=== PATIENT | female | born 1995 | race Caucasian/White ===

== ENCOUNTER 2017-12-23 14:44 | Inpatient (IN) | payer OTHER ==
--- NOTE | 2017-12-23 15:37 | PDOC ---
Attending Attestation - Resident Resident Name: Nyasia Rowley - ED Attending Attestation I have performed the following: I have examined & evaluated the patient, The case was reviewed & discussed with the resident, I agree w/resident's findings & plan, Exceptions are as noted - HPI HPI: 12/23/17 16:05 Ms Austin is a 22 yo F who presents to the ER with a complaint of abdominal pain She is s/p on 12/03/17 She has had intermittent epigastric pain, radiating to the back Pain this morning was 10/10 and became constant. Worsens with food, associated with nausea and decreased po intake No fevers or chills No diarrhea. Pt is actually constipated Denies dysuria, hematuria, vaginal discharge, or new vaginal bleeding - Physicial Exam PE: 12/23/17 16:13 GENERAL: The patient is in no acute distress. LUNGS: Breath sounds equal, clear to auscultation bilaterally. No wheezes, and no crackles. HEART:Regular rate and rhythm, normal S1 and S2 without murmur, rub or gallop. ABDOMEN: Soft, epigastric, RUQ tenderness to palpation EXTREMITIES: Normal range of motion NEUROLOGICAL: Cranial nerves II through XII grossly intact. Normal speech. No focal neurological deficits. SKIN: No rashes or lesions noted. - Medical Decision Making 12/23/17 16:14 22 yo F presenting with epigastric and ruq pain DD includes: gastritis, biliary pathology, ulcer, pancreatits Will do: Labs, US, Tylenol Re assess Pt signed out to Dr Scott pending US and Labs
[2017-12-23] MEDS ORDERED: ONDANSETRON 4 MG/2 ML VIAL IVPUSH ONE (15:40)
[2017-12-23] MEDS ORDERED: ACETAMINOPHEN 1000 MG/100 ML VIAL (NON FORMULARY) IVPB ONE (15:40)
[2017-12-23] MEDS ORDERED: SODIUM CHLORIDE 0.9% 500 ML INFUS.BAG IV ONE ×2 (15:40→17:53)
--- NOTE | 2017-12-23 15:46 | PDOC ---
History of Present Illness - General Chief Complaint: Pain, Acute Stated Complaint: STOMACH PAIN Time Seen by Provider: 12/23/17 15:24 History Source: Patient Exam Limitations: No Limitations - History of Present Illness Initial Comments: 12/23/17 15:41 This is a 22 YOF with h/o obesity and recent with uncomplicated full- term vaginal delivery (12/03/[address] Avilez) who p/w 2 days fluctuating epigastric and RUQ pain radiating straight back to her mid-back. It started out milder 2 days ago and seemed to improve initially, but this morning it increased to 10/10 and is constant, unrelenting. It worsens with any food intake and is associated with nausea, but she denies any f/c, v/d/c, chest pain , SOB (other than 2/2 exacerbated abdominal pain with deep breathing), cough, skin color changes, bloody or black stool, dysuria, hematuria, vaginal discharge , or new vaginal bleeding (has baseline spotting since giving last month) . She took Motrin for the pain at the onset two days ago but nothing for symptoms recently. Past History - Past Medical History Allergies/Adverse Reactions: Allergies Allergy/AdvReac Type Severity Reaction Status Date / Time latex Allergy Mild Hives Verified 12/23/17 14:49 Home Medications: Ambulatory Orders NK [No Known Home Medication] 12/23/17 Asthma: No Cancer: No Cardiac Disorders: No COPD: No Diabetes: No HTN: No Seizures: No Thyroid Disease: No - Suicide/Smoking/Psychosocial Hx Smoking History: Never smoked Have you smoked in the past 12 months: No Information on smoking cessation initiated: No Hx Alcohol Use: No Drug/Substance Use Hx: No Substance Use Type: None Hx Substance Use Treatment: No Review of Systems - Review of Systems Able to Perform ROS?: Yes Constitutional: No: Chills, Fever, Unexplained wgt Loss HEENTM: No: Nose Congestion, Throat Pain Respiratory: No: Cough, Shortness of Breath Cardiac (ROS): No: Chest Pain, Palpitations ABD/GI: Yes: Nausea, Other (upper abdominal pain). No: Constipated, Diarrhea, Vomiting : No: Burning, Dysuria Musculoskeletal: No: Back Pain, Neck Pain Integumentary: No: Bruising, Rash Neurological: No: Headache, Numbness, Tingling, Weakness, Dizziness Endocrine: No: Unexplained Weight Gain, Unexplained Weight Loss *Physical Exam - Vital Signs Last Vital Signs Temp Pulse Resp BP Pulse Ox 98.1 F 81 16 146/83 100 12/23/17 14:46 12/23/17 14:46 12/23/17 14:46 12/23/17 14:46 12/23/17 14:46 - Physical Exam General Appearance: Yes: Nourished, Obese, Other (pleasant adult female in minimal distress at rest but appears a bit uncomfortable, mild distress during abdominal palpation) HEENT: positive: EOMI, Normal Voice, Hearing Grossly Normal. negative: Scleral Icterus (R), Scleral Icterus (L), Nasal Congestion Neck: positive: Trachea midline, Supple. negative: Tender, Rigid Respiratory/Chest: positive: Lungs Clear, Normal Breath Sounds. negative: Respiratory Distress, Crackles, Rhonchi, Stridor, Wheezing Cardiovascular: positive: Regular Rhythm, Regular Rate, S1, S2. negative: Edema , JVD, Murmur Gastrointestinal/Abdominal: positive: Normal Bowel Sounds, Tender (moderate epigastric and RUQ ttp with +Kaur sign), Soft. negative: Organomegaly, Pulsatile Mass, Guarding Musculoskeletal: positive: Normal Inspection. negative: Decreased Range of Motion, Vertebral Tenderness Extremity: positive: Normal Capillary Refill, Normal Inspection, Normal Range of Motion. negative: Tender, Cyanosis Integumentary: positive: Normal Color, Dry, Warm. 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 Initial Vital Signs Temp Pulse Resp BP Pulse Ox 98.1 F 81 16 146/83 100 12/23/17 14:46 12/23/17 14:46 12/23/17 14:46 12/23/17 14:46 12/23/17 14:46 Exam: As noted in Physical Exam section. DDX IBNLT: cholecystitis (calculous vs. acalculous), choledocholithiasis, cholangitis, pancreatitis, gastritis, PUD, appendicitis, colitis, diverticulitis wwo abscess or perforation, AAA/AD, ACS, renal colic, obstructive uropathy, UTI/pyelonephritis, hernia, SBO, mesenteric/bowel ischemia , bowel perforation, malignancy, ovarian torsion, ovarian cyst, ectopic , PID, TOA, cervicitis, endometritis, salpingitis, oophoritis, Omari- Villa-Yann syndrome, primary dysmenorrhea, endometriosis, fibroids, constipation, gas, musculoskeletal, etc. W/U ordered: CBCD CMP Mg Phos Lipase Troponin Coags T&S UA UCx Serum Preg EKG CXR RUQ US TX ordered: IVF [facility] Elisgalen Padillad EKG: Reviewed; results as noted in ECG Review section. CXR: Nothing acute GB US: CBD 0.91 cm, stones and sludge seen in GB neck, GB wall thickening, no pericholecystic fluid Laboratory Tests 12/23/17 12/23/17 12/23/17 16:40 16:40 16:40 WBC 8.3 RBC 4.38 Hgb 12.6 Hct 36.8 D MCV 84.2 MCH 28.9 MCHC 34.3 RDW 14.8 Plt Count 357 D MPV 7.9 Absolute Neuts (auto) 6.4 Neutrophils % 77.2 Lymphocytes % 16.0 Monocytes % 5.3 Eosinophils % 0.8 D Basophils % 0.7 Nucleated RBC % 0 PT with INR 11.50 INR 1.02 Sodium 139 Potassium 4.3 Chloride 104 Carbon Dioxide 24 Anion Gap 11 BUN 9 Creatinine 0.7 Creat Clearance w eGFR > 60 Random Glucose 113 H Calcium 9.0 Phosphorus 3.5 Magnesium 2.0 Total Bilirubin 1.4 H AST 293 H ALT 183 H Alkaline Phosphatase 210 H Troponin I < 0.02 Total Protein 7.9 Albumin 3.6 Lipase 134 Serum , Qual Blood Type Antibody Screen 12/23/17 12/23/17 16:40 16:40 WBC RBC Hgb Hct MCV MCH MCHC RDW Plt Count MPV Absolute Neuts (auto) Neutrophils % Lymphocytes % Monocytes % Eosinophils % Basophils % Nucleated RBC % PT with INR INR Sodium Potassium Chloride Carbon Dioxide Anion Gap BUN Creatinine Creat Clearance w eGFR Random Glucose Calcium Phosphorus Magnesium Total Bilirubin AST ALT Alkaline Phosphatase Troponin I Total Protein Albumin Lipase Serum , Qual Negative Blood Type O POSITIVE Antibody Screen Negative 12/23/17 18:15 Reassessment: Patient remains painful, repeat abdominal exam unchanged. 12/23/17 18:[address] Mcfarland who is on board with admission to Med/Surg. Patient to be kept NPO. ADMIT The Pts symptoms persist despite ED treatments. The Pt is unsafe for discharge at this time. They require further hospital observation, workup, and treatment. Microblog sent to [facility] for admission. Blank Decision to Admit order has been placed. 12/23/17 20:12 Spoke with Vaishali Craig, in agreement patient to go to IP Med/Surg. Decision to Admit order corrected with Dr. Roque's name. *DC/Admit/Observation/Transfer Diagnosis at time of Disposition: Cholecystitis, Choledocholithiasis, Hyperbilirubinemia - Discharge Dispostion Condition at time of disposition: Guarded Decision to Admit order: Yes - Referrals - Patient Instructions - Post Discharge Activity
[2017-12-23] MEDS ORDERED: FAMOTIDINE 20 MG/50 ML IVPB 20 MG/50 ML MG IVPB ONE ×2 (15:48→16:46)
[2017-12-23] MEDS ORDERED: ACETAMINOPHEN INJECTION 100 ML IVPB ONE (16:46)
[2017-12-23] MEDS ORDERED: ONDANSETRON 4 MG/2 ML VIAL ONE (16:46)
[2017-12-23 16:58] LABS: BASO % 0.7 % (0-2.0); EOS % 0.8 % (0-4.5); HEMATOCRIT 36.8 % (32.4-45.2); HEMOGLOBIN 12.6 GM/dL (10.7-15.3); MCH 28.9 pg (25.7-33.7); MCHC 34.3 g/dl (32.0-36.0); MEAN CELL VOLUME 84.2 fl (80-96); MEAN PLT VOLUME 7.9 fl (7.5-11.1); MONO % 5.3 % (3.8-10.2); NEUT % 77.2 % (42.8-82.8); PLATELET COUNT 357 K/MM3 (134-434); RBC 4.38 M/mm3 (3.60-5.2); RDW 14.8 % (11.6-15.6); WHITE BLOOD COUNT 8.3 K/mm3 (4.0-10.0)
[2017-12-23 17:20] LABS: INR 1.02 (0.83-1.09); PROTHROMBIN TIME (PATIENT) 11.5 SEC (9.7-13.0)
[2017-12-23 17:25] LABS: ALBUMIN 3.6 g/dl (3.4-5.0); ANION GAP 11 MMOL/L (8-16); BILIRUBIN,TOTAL 1.4 mg/dL (0.2-1.0); BLOOD UREA NITROGEN 9 mg/dL (7-18); CHLORIDE 104 mmol/L (98-107); CO2 24 mmol/L (21-32); CREATININE 0.7 mg/dL (0.55-1.02); GLUCOSE,RANDOM 113 mg/dL (74-106); LIPASE 134 U/L (73-393); PHOSPHOROUS 3.5 mg/dL (2.5-4.9); POTASSIUM 4.3 mmol/L (3.5-5.1); SGOT/AST 293 U/L (15-37); SGPT/ALT 183 U/L (12-78); SODIUM 139 mmol/L (136-145); TOT PROT 7.9 g/dl (6.4-8.2)
[2017-12-23 17:29] LABS: ALK PHOS 210 U/L (45-117)
[2017-12-23 19:10] LABS: URINE APPEARANCE CLEAR; URINE BILIRUBIN NEGATIVE (<2.0 mg/dL); URINE COLOR STRAW; URINE GLUCOSE (UA) NEGATIVE (NEGATIVE); URINE KETONE NEGATIVE (NEGATIVE); URINE NITRITE NEGATIVE (NEGATIVE); URINE PROTEIN NEGATIVE (NEGATIVE); URINE UROBILINOGEN NEGATIVE mg/dL (0.2-1.0)
[2017-12-23 19:17] LABS: URINE LEUK ESTERASE 1+ (NEGATIVE)
[2017-12-23 19:18] LABS: EPI CELLS FEW /HPF (FEW)
[2017-12-23] MEDS ORDERED: MORPHINE SULFATE 2 MG/ML VIAL IVPUSH PRN (20:15)
--- NOTE | 2017-12-23 20:20 | HP ---
CHIEF COMPLAINT: PCP: Dr. Delacruz HISTORY OF PRESENT ILLNESS: Patient is a 22 yo F with no significant pmhx, presented with 10/10, intermittent epigastric and RUQ abdominal pain that radiates to her back. She says the pain started 2 days ago but couldn't handle the pain this morning. She associates the pain with food intake. She also has associated nausea. No vomiting. She denies fevers, chills, chest pain, diarrhea , blood in stool. She recently gave 12/03. It was uncomplicated vaginal . ER course was notable for: (1) GB US: CBD 0.91 cm, stones and sludge seen in GB neck, GB wall thickening, no pericholecystic fluid (2) Ast 293, ALT 183, Alk phos 210 Social History: Smoking: denies Alcohol: denies Drugs: denies Family History: Allergies latex Allergy (Mild, Verified 12/23/17 14:49) Hives HOME MEDICATIONS: Home Medications Medication Instructions Recorded NK [No Known Home Medication] 12/23/17 REVIEW OF SYSTEMS CONSTITUTIONAL: Absent: fever, chills, diaphoresis, generalized weakness, malaise, loss of appetite, weight change HEENT: Absent: eye pain, visual changes CARDIOVASCULAR: Absent: chest pain, syncope, palpitations, irregular heart rate, lightheadedness , peripheral edema RESPIRATORY: Absent: cough, shortness of breath, dyspnea with exertion, orthopnea, wheezing, stridor, hemoptysis GASTROINTESTINAL: abdominal pain, nausea Absent: abdominal distension,vomiting, diarrhea, constipation, melena, hematochezia GENITOURINARY: Absent: dysuria, frequency, urgency, hesitancy, hematuria, flank pain, genital pain MUSCULOSKELETAL: back pain Absent: myalgia, arthralgia, joint swelling, neck pain SKIN: Absent: rash, itching, pallor NEUROLOGIC: Absent: headache, focal weakness or paresthesias, dizziness, unsteady gait, seizure, mental status changes, bladder or bowel incontinence PSYCHIATRIC: Absent: anxiety, depression, suicidal or homicidal ideation, hallucinations. PHYSICAL EXAMINATION Vital Signs - 24 hr 12/23/17 14:46 Temperature 98.1 F Pulse Rate 81 Respiratory 16 Rate Blood Pressure 146/83 O2 Sat by Pulse 100 Oximetry (%) GENERAL: Awake, alert, and fully oriented, in no acute distress. HEAD: Normal with no signs of trauma. EYES: Pupils equal, round and reactive to light, extraocular movements intact. EARS, NOSE, THROAT: oropharynx clear without exudates. Moist mucous membranes. NECK: Normal range of motion, supple without lymphadenopathy, JVD, or masses. LUNGS: Breath sounds equal, clear to auscultation bilaterally. No wheezes, and no crackles. No accessory muscle use. HEART: Regular rate and rhythm, normal S1 and S2 without murmur, rub or gallop. ABDOMEN: tender to palpation in RUQ, + escobar, +BS, nondistended LOWER EXTREMITIES: 2+ pulses, warm, well-perfused. No calf tenderness. No peripheral edema. NEUROLOGICAL: Cranial nerves II-XII intact. Normal speech. Normal gait. PSYCHIATRIC: Cooperative. Good eye contact. Appropriate mood and affect. Laboratory Results - last 24 hr 12/23/17 12/23/17 12/23/17 16:40 16:40 16:40 WBC 8.3 RBC 4.38 Hgb 12.6 Hct 36.8 D MCV 84.2 MCH 28.9 MCHC 34.3 RDW 14.8 Plt Count 357 D MPV 7.9 Absolute Neuts (auto) 6.4 Neutrophils % 77.2 Lymphocytes % 16.0 Monocytes % 5.3 Eosinophils % 0.8 D Basophils % 0.7 Nucleated RBC % 0 PT with INR 11.50 INR 1.02 Sodium 139 Potassium 4.3 Chloride 104 Carbon Dioxide 24 Anion Gap 11 BUN 9 Creatinine 0.7 Creat Clearance w eGFR > 60 Random Glucose 113 H Calcium 9.0 Phosphorus 3.5 Magnesium 2.0 Total Bilirubin 1.4 H AST 293 H ALT 183 H Alkaline Phosphatase 210 H Troponin I < 0.02 Total Protein 7.9 Albumin 3.6 Lipase 134 Serum , Qual Urine Color Urine Appearance Urine pH Ur Specific [place] Urine Protein Urine Glucose (UA) Urine Ketones Urine Blood Urine Nitrite Urine Bilirubin Urine Urobilinogen Ur Leukocyte Esterase Urine WBC (Auto) Urine RBC (Auto) Ur Epithelial Cells Blood Type Antibody Screen 12/23/17 12/23/17 12/23/17 16:40 16:40 19:02 WBC RBC Hgb Hct MCV MCH MCHC RDW Plt Count MPV Absolute Neuts (auto) Neutrophils % Lymphocytes % Monocytes % Eosinophils % Basophils % Nucleated RBC % PT with INR INR Sodium Potassium Chloride Carbon Dioxide Anion Gap BUN Creatinine Creat Clearance w eGFR Random Glucose Calcium Phosphorus Magnesium Total Bilirubin AST ALT Alkaline Phosphatase Troponin I Total Protein Albumin Lipase Serum , Qual Negative Urine Color Straw Urine Appearance Clear Urine pH 8.0 D Ur Specific [place] 1.002 Urine Protein Negative Urine Glucose (UA) Negative Urine Ketones Negative Urine Blood 2+ H Urine Nitrite Negative Urine Bilirubin Negative Urine Urobilinogen Negative Ur Leukocyte Esterase 1+ H D Urine WBC (Auto) 24 Urine RBC (Auto) <1 Ur Epithelial Cells Few Blood Type O POSITIVE Antibody Screen Negative ASSESSMENT/PLAN: 22 yo F with no significant pmhx, presented with epigastric and 10/10, intermittent epigastric and RUQ abdominal pain that radiates to her back. #Abdominal pain -Cholecystitis, Choledocholithiasis, Hyperbilirubinemia -GB US: CBD 0.91 cm, stones and sludge seen in GB neck, GB wall thickening, no pericholecystic fluid -surgery on board: Dr. Mcfarland -GI consulted -HIDA scan -MRCP -IV fluids -Start IV abx: Levaquin, Flagyl -morphine for pain control -NPO #FEN -IV fluids NS @ 75 -monitor lytes -NPO #DVT -scds Visit type - Emergency Visit Emergency Visit: Yes ED Registration Date: 12/23/17 Care time: The patient presented to the Emergency Department on the above date and was hospitalized for further evaluation of their emergent condition. - New Patient This patient is new to me today: Yes Date on this admission: 12/26/17 - Critical Care Critical Care patient: No Hospitalist Screening - Colonoscopy Questionnaire Colonoscopy Questionnaire: Colonoscopy Questionnaire - Patient: 50 - 75 years old and never had a screening colonoscopy: Unknown History of colon or rectal polyps, or CA: Unknown History of IBD, Crohn's disease or UC: Unknown History of abdominal radiation therapy as a child: Unknown - Relative: 1 with colon or rectal CA, or polyps at age 60 or younger: Unknown Colon or rectal CA diagnosed at age 45 or younger: Unknown Multiple relatives with colon or rectal CA: Unknown - Outcome: Screening Result: Negative Screen
[2017-12-23] MEDS ORDERED: SODIUM CHLORIDE 1,000 ML IV SCH (20:30)
--- NOTE | 2017-12-23 21:26 | PN ---
Teaching Attending Note Name of Resident: Vaishali Craig ATTENDING PHYSICIAN STATEMENT I saw and evaluated the patient. I reviewed the resident's note and discussed the case with the resident. I agree with the resident's findings and plan as documented. SUBJECTIVE: OBJECTIVE: ASSESSMENT AND PLAN: 22 y/o female presented for RUQP patient recently gave . she is being managed for an acute cholecystitis plan: metronidazole 500mg q8hrs levofloxacin 500mg daily Surgery evaluation NPO PM pain management with morphine 2mg q4hrs prin and SR 15mg daily
--- NOTE | 2017-12-23 21:40 | CONSULT ---
Consult Consult Specialty:: Surgery Reason for Consultation:: Abdominal pain , cholelithiasis, possible choledocholithiasis,common bile duct obstruction. - History of Present Illness Chief Complaint: Abdominal pain for 2 days, with nausea. History of Present Illness: C/O Upper abdominal pain x 2 days, with nausea. - History Source History Provided By: Patient - Alcohol/Substance Use Hx Alcohol Use: No - Smoking History Smoking history: Never smoked Have you smoked in the past 12 months: No - Social History History of Recent Travel: No Home Medications - Allergies Allergies/Adverse Reactions: Allergies Allergy/AdvReac Type Severity Reaction Status Date / Time latex Allergy Mild Hives Verified 12/23/17 14:49 - Home Medications Home Medications: Ambulatory Orders NK [No Known Home Medication] 12/23/17 Review of Systems - Review of Systems Gastrointestinal: reports: Abdominal Pain Physical Exam Vital Signs: Vital Signs Temperature 98.3 F 12/23/17 20:05 Pulse Rate 63 12/23/17 20:05 Respiratory Rate 18 12/23/17 20:05 Blood Pressure 140/82 12/23/17 20:05 O2 Sat by Pulse Oximetry (%) 99 12/23/17 20:05 Labs: CBC, BMP 12/23/17 16:40 12/23/17 16:40 Imaging - Results Ultrasound: Image Reviewed Problem List - Problems (1) Calculus of gallbladder Code(s): K80.20 - CALCULUS OF GALLBLADDER W/O CHOLECYSTITIS W/O OBSTRUCTION (2) Choledocholithiasis Code(s): K80.50 - CALCULUS OF BILE DUCT W/O CHOLANGITIS OR CHOLECYST W/O OBST (3) Abnormal liver enzymes Code(s): R74.8 - ABNORMAL LEVELS OF OTHER SERUM ENZYMES (4) Obesity Code(s): E66.9 - OBESITY, UNSPECIFIED Assessment/Plan Hida scan , and MRCP, pain management, Liquid diet, Cholecystectomy later.
[2017-12-23 22:19] VITALS: BMI 36.3
[2017-12-23] MEDS ORDERED: morphine SO4 SUSTAINED ACTING 15 MG TABLET.SA PO SCH (22:27)
[2017-12-24 07:00] LABS: HEMATOCRIT 33.7 % (32.4-45.2); HEMOGLOBIN 11.6 GM/dL (10.7-15.3); MCH 28.8 pg (25.7-33.7); MCHC 34.4 g/dl (32.0-36.0); MEAN CELL VOLUME 83.7 fl (80-96); MEAN PLT VOLUME 7.4 fl (7.5-11.1); PLATELET COUNT 305 K/MM3 (134-434); RBC 4.03 M/mm3 (3.60-5.2); RDW 14.7 % (11.6-15.6); WHITE BLOOD COUNT 6.3 K/mm3 (4.0-10.0)
[2017-12-24 07:19] LABS: INR 1.09 (0.83-1.09); PROTHROMBIN TIME (PATIENT) 12.3 SEC (9.7-13.0)
[2017-12-24 07:53] LABS: ALBUMIN 2.9 g/dl (3.4-5.0); ANION GAP 7 MMOL/L (8-16); CALCIUM 8.5 mg/dL (8.5-10.1); CHLORIDE 107 mmol/L (98-107); CO2 26 mmol/L (21-32); MAGNESIUM 1.9 mg/dL (1.8-2.4); SODIUM 140 mmol/L (136-145)
[2017-12-24 07:56] LABS: ALK PHOS 264 U/L (45-117); BILIRUBIN,TOTAL 2.3 mg/dL (0.2-1.0); BLOOD UREA NITROGEN 5 mg/dL (7-18); CREATININE 0.6 mg/dL (0.55-1.02); GLUCOSE,RANDOM 97 mg/dL (74-106); PHOSPHOROUS 3.7 mg/dL (2.5-4.9); SGOT/AST 388 U/L (15-37); SGPT/ALT 295 U/L (12-78); TOT PROT 6.6 g/dl (6.4-8.2)
[2017-12-24] MEDS: HYDROmorphone HCL CARPU-JECT 2 MG/1 ML DISP.SYRIN IVPB PRN ×3 (09:52→22:41)
--- NOTE | 2017-12-24 09:53 | CON.GI ---
Consult Consult Specialty:: Gastroenterology ( covering for Dr Topete) Referred by:: Dr. Craig Reason for Consultation:: Abdominal pain - History of Present Illness Chief Complaint: Colicky epigastirc pain radiating into the back History of Present Illness: 22F who is 3 weeks ( #2) developed severe colicky epigastric pain radiating into the scapula on 12/22/17. She has chills but recorded no fevers. She apparently had one episode of similar pain during her . NO h/o GI problems. Her mother had her GB removed. Has nausea but has not vomited. No h/o liver disease. 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 Place of : [facility] History of Recent Travel: No Home Medications - Allergies Allergies/Adverse Reactions: Allergies Allergy/AdvReac Type Severity Reaction Status Date / Time latex Allergy Mild Hives Verified 12/23/17 14:49 - Home Medications Home Medications: Ambulatory Orders NK [No Known Home Medication] 12/23/17 Family Disease History - Family Disease History Family Disease History: Diabetes: Father, Other: Mother (had GB removed) Review of Systems - Review of Systems Constitutional: reports: Chills Eyes: reports: No Symptoms HENT: reports: No Symptoms Neck: reports: No Symptoms Cardiovascular: reports: No Symptoms Respiratory: reports: No Symptoms Gastrointestinal: reports: Abdominal Pain, Nausea Genitourinary: reports: No Symptoms Musculoskeletal: reports: Back Pain Physical Exam-GI Vital Signs: Vital Signs Temperature 98.4 F 12/24/17 06:00 Pulse Rate 78 12/24/17 06:00 Respiratory Rate 20 12/24/17 06:00 Blood Pressure 122/74 12/24/17 06:00 O2 Sat by Pulse Oximetry (%) 100 12/23/17 22:00 CBC,CMP WBC 6.3 K/mm3 (4.0-10.0) 12/24/17 06:30 RBC 4.03 M/mm3 (3.60-5.2) 12/24/17 06:30 Hgb 11.6 GM/dL (10.7-15.3) 12/24/17 06:30 Hct 33.7 % (32.4-45.2) 12/24/17 06:30 MCV 83.7 fl (80-96) 12/24/17 06:30 MCH 28.8 pg (25.7-33.7) 12/24/17 06:30 MCHC 34.4 g/dl (32.0-36.0) 12/24/17 06:30 RDW 14.7 % (11.6-15.6) 12/24/17 06:30 Plt Count 305 K/MM3 (134-434) 12/24/17 06:30 MPV 7.4 fl (7.5-11.1) L 12/24/17 06:30 Absolute Neuts (auto) 6.4 K/mm3 (1.5-8.0) 12/23/17 16:40 Neutrophils % 77.2 % (42.8-82.8) 12/23/17 16:40 Lymphocytes % 16.0 % (8-40) 12/23/17 16:40 Monocytes % 5.3 % (3.8-10.2) 12/23/17 16:40 Eosinophils % 0.8 % (0-4.5) D 12/23/17 16:40 Basophils % 0.7 % (0-2.0) 12/23/17 16:40 Nucleated RBC % 0 % (0-0) 12/23/17 16:40 Sodium 140 mmol/L (136-145) 12/24/17 06:30 Potassium 4.0 mmol/L (3.5-5.1) 12/24/17 06:30 Chloride 107 mmol/L (98-107) 12/24/17 06:30 Carbon Dioxide 26 mmol/L (21-32) 12/24/17 06:30 Anion Gap 7 MMOL/L (8-16) L 12/24/17 06:30 BUN 5 mg/dL (7-18) L 12/24/17 06:30 Creatinine 0.6 mg/dL (0.55-1.02) 12/24/17 06:30 Creat Clearance w eGFR > 60 (>60) 12/24/17 06:30 Random Glucose 97 mg/dL (74-106) 12/24/17 06:30 Calcium 8.5 mg/dL (8.5-10.1) 12/24/17 06:30 Phosphorus 3.7 mg/dL (2.5-4.9) 12/24/17 06:30 Magnesium 1.9 mg/dL (1.8-2.4) 12/24/17 06:30 Total Bilirubin 2.3 mg/dL (0.2-1.0) H 12/24/17 06:30 AST 388 U/L (15-37) H 12/24/17 06:30 ALT 295 U/L (12-78) H 12/24/17 06:30 Alkaline Phosphatase 264 U/L (45-117) H D 12/24/17 06:30 Troponin I < 0.02 ng/ml (0.00-0.05) 12/23/17 16:40 Total Protein 6.6 g/dl (6.4-8.2) 12/24/17 06:30 Albumin 2.9 g/dl (3.4-5.0) L 12/24/17 06:30 Lipase 134 U/L (73-393) 12/23/17 16:40 Serum , Qual Negative 12/23/17 16:40 Current Medications Generic Name Dose Route Start Last Admin Trade Name Freq PRN Reason Stop Dose Admin Docusate Sodium 100 mg 12/24/17 14:00 Colace - PO TID YAMILA Hydromorphone HCl 2 mg 12/24/17 09:39 12/24/17 09:52 Dilaudid Injection - IVPB 2 mg Q4H PRN Administration PAIN LEVEL 6-10 Metronidazole 500 mg in 100 mls @ 100 mls/hr 12/24/17 12:00 Flagyl 500mg Premixed Ivpb - IVPB Q8H YAMILA Ampicillin Sodium/Sulbactam 100 mls @ 200 mls/hr 12/24/17 09:45 Sodium 3 gm/ Sodium Chloride IVPB Q6H-IV YAMILA Dextrose/Sodium Chloride 1,000 mls @ 125 mls/hr 12/24/17 10:00 D5-1/2ns - IV ASDIR YAMILA Ondansetron HCl 4 mg 12/24/17 09:45 Zofran Injection IVPB Q6H PRN NAUSEA Constitutional: Yes: Well Nourished Eyes: Yes: Conjunctiva Clear HENT: Yes: Atraumatic Neck: Yes: Supple Cardiovascular: Yes: Regular Rate and Rhythm Respiratory: Yes: Regular, CTA Bilaterally Gastrointestinal Inspection: Yes: WNL ...Auscultate: Yes: Hypoactive Bowel Sounds ...Palpate: Yes: Soft, Tenderness, Epigastium (mild), Other (noperitoneal signs) ...Rectal Exam: Yes: Deferred Labs: CBC, BMP 12/24/17 06:30 12/24/17 06:30 INR, PTT INR 1.09 (0.83-1.09) 12/24/17 06:30 Imaging - Results Ultrasound: Image Reviewed (3.8mm CBD, ? GB stone shadowing, await confirmation by Dr Hurtado) Problem List - Problems (1) Abdominal pain Assessment/Plan: The clinical picture is most consistent with biliary colic due to cholecystitis. Her LFT abnormalities suggest choledocholithiasis and the risk of cholangitis. Have switch Levaquin to Unasyn to allow for Zofran. Have discussed the case with Dr Hurtado of radiology who will read the sonogram and call me back. Have expedited MRCP to be done today. I have discussed the potential need for ERCP with sphincterotomy, stone extraction or stent insertion in detail with Andra. I informed her of the 5-15% risk of complications that include perforation. hemorrhage and ERCP induced pancreatitis leading to multiorgan failure. She has signed an informed consent I discussed the case with Dr Bland. Surgery is already on the case but will need to be deferred until the status of the bile duct is ascertained. Code(s): R10.9 - UNSPECIFIED ABDOMINAL PAIN (2) Nausea Code(s): R11.0 - NAUSEA (3) Abnormal liver enzymes Code(s): R74.8 - ABNORMAL LEVELS OF OTHER SERUM ENZYMES (4) Hyperbilirubinemia Code(s): E80.6 - OTHER DISORDERS OF BILIRUBIN METABOLISM Assessment/Plan MRCP today Continue antibiotics Parenteral analgesia changed IV fluids Possible ERCP tomorrow Dr Topete will return tomorrow.
[2017-12-24] MEDS: DEXTROSE 5%-0.45% SALINE 1,000 ML IV SCH ×2 (10:00→21:28)
--- NOTE | 2017-12-24 10:10 | PN ---
Progress Note (short form) - Note Progress Note: Subjective: no fever or chills. has RUQ pain, feels dizzy, and nauseous. No vomiting. reports one episode of RUQ pain that lasted 2 hours during . no h/o gall stones. no change in urine or stool color. reprots constipation . her pain started on , which was intermittent , and now becam constant. now better after pain meds . denies dysuria Objective: Vital Signs: Last Vital Signs Temp Pulse Resp BP Pulse Ox 98.4 F 78 20 122/74 100 12/24/17 06:00 12/24/17 06:00 12/24/17 06:00 12/24/17 06:00 12/23/17 22:00 Laboratory Results - last 24 hr 12/23/17 12/23/17 12/23/17 16:40 16:40 16:40 WBC 8.3 RBC 4.38 Hgb 12.6 Hct 36.8 D MCV 84.2 MCH 28.9 MCHC 34.3 RDW 14.8 Plt Count 357 D MPV 7.9 Absolute Neuts (auto) 6.4 Neutrophils % 77.2 Lymphocytes % 16.0 Monocytes % 5.3 Eosinophils % 0.8 D Basophils % 0.7 Nucleated RBC % 0 PT with INR 11.50 INR 1.02 Sodium 139 Potassium 4.3 Chloride 104 Carbon Dioxide 24 Anion Gap 11 BUN 9 Creatinine 0.7 Creat Clearance w eGFR > 60 Random Glucose 113 H Calcium 9.0 Phosphorus 3.5 Magnesium 2.0 Total Bilirubin 1.4 H AST 293 H ALT 183 H Alkaline Phosphatase 210 H Troponin I < 0.02 Total Protein 7.9 Albumin 3.6 Lipase 134 Serum , Qual Urine Color Urine Appearance Urine pH Ur Specific [place] Urine Protein Urine Glucose (UA) Urine Ketones Urine Blood Urine Nitrite Urine Bilirubin Urine Urobilinogen Ur Leukocyte Esterase Urine WBC (Auto) Urine RBC (Auto) Ur Epithelial Cells Blood Type Antibody Screen 12/23/17 12/23/17 12/23/17 16:40 16:40 19:02 WBC RBC Hgb Hct MCV MCH MCHC RDW Plt Count MPV Absolute Neuts (auto) Neutrophils % Lymphocytes % Monocytes % Eosinophils % Basophils % Nucleated RBC % PT with INR INR Sodium Potassium Chloride Carbon Dioxide Anion Gap BUN Creatinine Creat Clearance w eGFR Random Glucose Calcium Phosphorus Magnesium Total Bilirubin AST ALT Alkaline Phosphatase Troponin I Total Protein Albumin Lipase Serum , Qual Negative Urine Color Straw Urine Appearance Clear Urine pH 8.0 D Ur Specific [place] 1.002 Urine Protein Negative Urine Glucose (UA) Negative Urine Ketones Negative Urine Blood 2+ H Urine Nitrite Negative Urine Bilirubin Negative Urine Urobilinogen Negative Ur Leukocyte Esterase 1+ H D Urine WBC (Auto) 24 Urine RBC (Auto) <1 Ur Epithelial Cells Few Blood Type O POSITIVE Antibody Screen Negative 12/24/17 12/24/17 12/24/17 06:30 06:30 06:30 WBC 6.3 RBC 4.03 Hgb 11.6 Hct 33.7 MCV 83.7 MCH 28.8 MCHC 34.4 RDW 14.7 Plt Count 305 MPV 7.4 L Absolute Neuts (auto) Neutrophils % Lymphocytes % Monocytes % Eosinophils % Basophils % Nucleated RBC % PT with INR 12.30 INR 1.09 Sodium 140 Potassium 4.0 Chloride 107 Carbon Dioxide 26 Anion Gap 7 L BUN 5 L Creatinine 0.6 Creat Clearance w eGFR > 60 Random Glucose 97 Calcium 8.5 Phosphorus 3.7 Magnesium 1.9 Total Bilirubin 2.3 H AST 388 H ALT 295 H Alkaline Phosphatase 264 H D Troponin I Total Protein 6.6 Albumin 2.9 L Lipase Serum , Qual Urine Color Urine Appearance Urine pH Ur Specific [place] Urine Protein Urine Glucose (UA) Urine Ketones Urine Blood Urine Nitrite Urine Bilirubin Urine Urobilinogen Ur Leukocyte Esterase Urine WBC (Auto) Urine RBC (Auto) Ur Epithelial Cells Blood Type Antibody Screen Physical Exam: NAD, AAOx3. MMM, no LAP in neck. no facial droop, EOMI, round equal pupils, reactive to light. CV: RRR, 2/6 SM At LUSB . Lungs: CATB ext : NO edema , or erythema ABd:L soft, ND, NL BS , TTP in RUQ, with + Kaur's and no rebound tenderness Assessment/Plan: 22 y/o lady with recent vaginal delivery who presented with RUQ pain x 3 days . 1- RUQ pain: exam , labs and history are suspicious for acute cholecystitis. concern for CBD obstructing stones given the increase in LFTS . - US report pending - MRCP pending. might not need HIDA . - cont unasyn - cont IVF - cont dilaudid - zofran - d/w Dr. Kozicky . if CBD stone, will need ERCP. 2- asymptomatic pyuria. no treatment 3- DVT PX on hold due to possible need for ERCP SCDS. Visit type - Emergency Visit Emergency Visit: Yes ED Registration Date: 12/23/17 Care time: The patient presented to the Emergency Department on the above date and was hospitalized for further evaluation of their emergent condition. - New Patient This patient is new to me today: Yes Date on this admission: 12/24/17 - Critical Care Critical Care patient: No
--- NOTE | 2017-12-24 10:52 | PN ---
Progress Note (short form) - Note Progress Note: GI Addendum. Dr Hurtado called to confirm the presence of GB stones and no ductal dilation Problem List - Problems (1) Abnormal liver enzymes Code(s): R74.8 - ABNORMAL LEVELS OF OTHER SERUM ENZYMES (2) Hyperbilirubinemia Code(s): E80.6 - OTHER DISORDERS OF BILIRUBIN METABOLISM
[2017-12-24] MEDS: AMPICILLIN NA/SULBACTAM NA 3 GM in SODIUM CHLORIDE 100 ML IVPB SCH ×3 (11:29→21:29)
--- NOTE | 2017-12-24 12:01 | PN ---
Progress Note, Physician - Current Medication List Current Medications: Active Medications Docusate Sodium (Colace -) 100 mg PO TID YAMILA Hydromorphone HCl (Dilaudid Injection -) 2 mg IVPB Q4H PRN PRN Reason: PAIN LEVEL 6-10 Last Admin: 12/24/17 09:52 Dose: 2 mg Ampicillin Sodium/Sulbactam (Sodium 3 gm/ Sodium Chloride) 100 mls @ 200 mls/ hr IVPB Q6H-IV YAMILA Last Admin: 12/24/17 11:29 Dose: 200 mls/hr Dextrose/Sodium Chloride (D5-1/2ns -) 1,000 mls @ 125 mls/hr IV ASDIR YAMILA Last Admin: 12/24/17 10:00 Dose: 125 mls/hr Ondansetron HCl (Zofran Injection) 4 mg IVPB Q6H PRN PRN Reason: NAUSEA - Objective Vital Signs: Vital Signs Temperature 98.2 F 12/24/17 11:35 Pulse Rate 81 12/24/17 11:35 Respiratory Rate 18 12/24/17 11:35 Blood Pressure 132/69 12/24/17 11:35 O2 Sat by Pulse Oximetry (%) 100 12/23/17 22:00 Labs: CBC, BMP 12/24/17 06:30 12/24/17 06:30 INR, PTT INR 1.09 (0.83-1.09) 12/24/17 06:30 Problem List - Problems (1) Calculus of gallbladder Code(s): K80.20 - CALCULUS OF GALLBLADDER W/O CHOLECYSTITIS W/O OBSTRUCTION (2) Choledocholithiasis Code(s): K80.50 - CALCULUS OF BILE DUCT W/O CHOLANGITIS OR CHOLECYST W/O OBST (3) Abnormal liver enzymes Code(s): R74.8 - ABNORMAL LEVELS OF OTHER SERUM ENZYMES (4) Obesity Code(s): E66.9 - OBESITY, UNSPECIFIED Assessment/Plan Surgery: Patient is feeling better. Abdomen is soft , not tender. Liver enzymes are rising, suggestive of common bile duct obstruction. G.I. consult noted. Cholecystectomy later. Antibiotics.
[2017-12-24] MEDS: ONDANSETRON 4 MG/2 ML VIAL IVPB PRN ×2 (13:07→21:29)
[2017-12-24] MEDS: DOCUSATE SODIUM 100 MG CAPSULE (FP) PO SCH ×2 (13:48→21:29)
[2017-12-24] MEDS ORDERED: PT OWN MED DRAWER 7, Y5N ONE ×2 (15:12→21:20)
[2017-12-25] MEDS ORDERED: PT OWN MED DRAWER 7, Y5N ONE ×4 (03:16→21:51)
[2017-12-25] MEDS: MORPHINE SULFATE 2 MG/ML VIAL IVPUSH PRN ×2 (03:23→07:30)
[2017-12-25] MEDS: AMPICILLIN NA/SULBACTAM NA 3 GM in SODIUM CHLORIDE 100 ML IVPB SCH ×4 (03:23→21:57)
[2017-12-25] MEDS: DOCUSATE SODIUM 100 MG CAPSULE (FP) PO SCH ×3 (05:32→21:56)
[2017-12-25] MEDS: DEXTROSE 5%-0.45% SALINE 1,000 ML IV SCH ×2 (07:32→19:19)
[2017-12-25 08:02] LABS: BASO % 0.4 % (0-2.0); EOS % 2.2 % (0-4.5); HEMATOCRIT 35.4 % (32.4-45.2); LYMPH % 21.8 % (8-40); MCH 28.6 pg (25.7-33.7); MCHC 33.8 g/dl (32.0-36.0); MEAN CELL VOLUME 84.6 fl (80-96); MEAN PLT VOLUME 7.6 fl (7.5-11.1); MONO % 7.5 % (3.8-10.2); NEUT % 68.1 % (42.8-82.8); PLATELET COUNT 352 K/MM3 (134-434); RBC 4.19 M/mm3 (3.60-5.2); RDW 15.1 % (11.6-15.6); WHITE BLOOD COUNT 7.6 K/mm3 (4.0-10.0)
[2017-12-25 08:10] LABS: ALBUMIN 3.1 g/dl (3.4-5.0); AMYLASE 42 U/L (25-115); ANION GAP 10 MMOL/L (8-16); BLOOD UREA NITROGEN 3 mg/dL (7-18); CALCIUM 8.8 mg/dL (8.5-10.1); CHLORIDE 102 mmol/L (98-107); CO2 28 mmol/L (21-32); CREATININE 0.6 mg/dL (0.55-1.02); GLUCOSE,RANDOM 112 mg/dL (74-106); LIPASE 98 U/L (73-393); POTASSIUM 3.7 mmol/L (3.5-5.1); SGOT/AST 373 U/L (15-37); SODIUM 140 mmol/L (136-145)
[2017-12-25 08:15] LABS: ALK PHOS 392 U/L (45-117); BILIRUBIN,DIRECT 3.3 mg/dL (0.0-0.2); BILIRUBIN,TOTAL 4.2 mg/dL (0.2-1.0); TOT PROT 6.7 g/dl (6.4-8.2)
[2017-12-25 08:16] LABS: SGPT/ALT 417 U/L (12-78)
[2017-12-25 08:20] LABS: INR 1.09 (0.83-1.09); PROTHROMBIN TIME (PATIENT) 12.3 SEC (9.7-13.0)
--- NOTE | 2017-12-25 08:55 | PN ---
Physical Exam: SUBJECTIVE: Patient seen and examined at bedside this morning. Complains of 7/ 10 pain in RUQ abdomen that is radiating to her back. States the morphine she receives is not helping her pain. Denies nausea, or vomiting. Last bowel movement was Monday afternoon, loose, without hematochezia, or melena. Urinated this morning without dysuria, hematuria. Today denies fevers, chills, shortness of breath, chest pain, palpitations, nausea, vomiting, diarrhea. OBJECTIVE: Vital Signs Period Temp Pulse Resp BP Sys/Brown Pulse Ox Last 24 Hr 98.2 F-98.9 F 73-93 17-18 115-154/61-84 99-99 GENERAL: The patient is awake, alert, and oriented to person, place, time in no acute distress. HEAD: Normocephalic, atraumatic. EYES: PERRLA, extraocular movements intact, sclera anicteric, conjunctiva clear. ENT: Oropharynx clear without exudates, slightly dry mucous membranes. NECK: Trachea midline, full range of motion, supple without lymphadenopathy. LUNGS: Breath sounds equal, clear to auscultation bilaterally, no wheezes, no crackles, no accessory muscle use. HEART: Regular rate and rhythm, S1, S2. Holosystolic mumur best auscultated at apex, without appreciable radiation. ABDOMEN: Soft, nontender, nondistended, hypoactive bowel sounds, no guarding, no rebound, no hepatosplenomegaly, no masses. Positive Kaur's sign. EXTREMITIES: 2+ pulses radial and DP. Warm, well-perfused, no lower extremity edema B/L. NEUROLOGICAL: Cranial nerves II through XII grossly intact. Normal speech, no gross focal deficits. PSYCH: Appropriate mood and affect upon my exam today. SKIN: Warm, dry, normal turgor, no rashes or lesions noted. Laboratory Results - last 24 hr 12/25/17 12/25/17 07:30 07:30 WBC 7.6 RBC 4.19 Hgb 12.0 Hct 35.4 MCV 84.6 MCH 28.6 MCHC 33.8 RDW 15.1 Plt Count 352 MPV 7.6 Absolute Neuts (auto) 5.2 Neutrophils % 68.1 Lymphocytes % 21.8 D Monocytes % 7.5 Eosinophils % 2.2 D Basophils % 0.4 Nucleated RBC % 0 Sodium 140 Potassium 3.7 Chloride 102 Carbon Dioxide 28 Anion Gap 10 BUN 3 L Creatinine 0.6 Creat Clearance w eGFR > 60 Random Glucose 112 H Calcium 8.8 Total Bilirubin 4.2 H Direct Bilirubin 3.3 H AST 373 H ALT 417 H Alkaline Phosphatase 392 H D C-Reactive Protein 3.5 H Total Protein 6.7 Albumin 3.1 L Total Amylase 42 Lipase 98 Active Medications Generic Name Dose Route Start Last Admin Trade Name Freq PRN Reason Stop Dose Admin Docusate Sodium 100 mg 12/24/17 14:00 12/25/17 05:32 Colace - PO Not Given TID YAMILA Ampicillin Sodium/Sulbactam 100 mls @ 200 mls/hr 12/24/17 09:45 12/25/17 03: 23 Sodium 3 gm/ Sodium Chloride IVPB 200 mls/hr Q6H-IV YAMILA Administration Dextrose/Sodium Chloride 1,000 mls @ 125 mls/hr 12/24/17 10:00 12/25/17 07:32 D5-1/2ns - IV 125 mls/hr ASDIR YAMILA Administration Morphine Sulfate 1 mg 12/25/17 02:45 12/25/17 07:30 Morphine Sulfate IVPUSH 1 mg Q4H PRN Administration PAIN LEVEL 6-10 Ondansetron HCl 4 mg 12/24/17 09:45 12/24/17 21:29 Zofran Injection IVPB 4 mg Q6H PRN Administration NAUSEA ASSESSMENT/PLAN: Patient is a 22 year old female who recently gave to baby girl earlier this month, presents with complaint of RUQ abdominal pain radiating to the back. Admitted for cholecystitis vs choledocholithiasis. . Cholecystitis vs Choledocolithiasis -US showed small gallstones without evidence of acute cholecystitis. Fatty liver vs hepatocellular disease. -HIDA scan showed no filling of the gallbladder within 2 hours of imaging. Suggestive of cystic duct obstruction and cholecystitis. -MRCP showed showed cholelithiasis with thickened gallbladder wall. No intrahepatic bile duct dilation. No hepatic or bile duct dilation. No choledocolithiasis. No pancreatic duct dilation. -GI consult (Dr. Remy) appreciated: Patient underwent ERCP today. Distal CBD stone removed. -Surgery consul (Dr. Mcfarland) appreciated: Patient for lap rajni. -Unasyn 3gm Q6H IV -Pain control with morphine 1mg IV Q4 -Zofran 4mg IV Q6H PRN for nausea. FEN -IV LR at 150ml/hr -Will follow CMP -Clear diet Prophylaxis -SCDs B/L lower extremities Disposition: -Continue care on medical- surgical floor, pending laparoscopic rajni Visit type - Emergency Visit Emergency Visit: Yes ED Registration Date: 12/23/17 Care time: The patient presented to the Emergency Department on the above date and was hospitalized for further evaluation of their emergent condition. - New Patient This patient is new to me today: Yes Date on this admission: 12/25/17 - Critical Care Critical Care patient: No - Discharge Referral Referred to [facility] No
--- NOTE | 2017-12-25 10:41 | EKG ---
Test Reason : Blood Pressure : / mmHG Vent. Rate : 079 BPM Atrial Rate : 079 BPM P-R Int : 152 ms QRS Dur : 108 ms QT Int : 374 ms P-R-T Axes : 013 032 060 degrees QTc Int : 428 ms NORMAL SINUS RHYTHM INCOMPLETE RIGHT BUNDLE BRANCH BLOCK BORDERLINE ECG NO PREVIOUS ECGS AVAILABLE Confirmed by HEAVEN MARCH MD ([id number]) on 12/25/2017 10:40:43 AM Referred By: Confirmed By:HEAVEN MARCH MD
[2017-12-25] MEDS ORDERED: INDOMETHACIN 50 MG RECTAL SUPPOSITORY PR ONE (10:55)
--- NOTE | 2017-12-25 10:58 | PN ---
Progress Note (short form) - Note Progress Note: GI Procedure Note ( covering Dr. Topete): Despite negate MRCP ERCP was undertaken when jaundice worsening and pain persisted. Please see scanned ERCP report. Purulent bile emanated from the bile duct upon annulation indicating cholangitis. A distal CBD stones was identified and removed after a sphincterotomy was made. No residual stones were seen on balloon impaction cholangiogram. Problem List - Problems (1) Abnormal liver enzymes Code(s): R74.8 - ABNORMAL LEVELS OF OTHER SERUM ENZYMES (2) Hyperbilirubinemia Code(s): E80.6 - OTHER DISORDERS OF BILIRUBIN METABOLISM
[2017-12-25] MEDS ORDERED: LACTATED RINGERS SOLUTION 1,000 ML/1,000 ML INFUS.BAG IV SCH ×4 (11:00→23:00)
[2017-12-25] MEDS ORDERED: MORPHINE SULFATE 2 MG/ML VIAL IVPUSH PRN (11:11)
--- NOTE | 2017-12-25 16:08 | PN ---
Progress Note, Physician - Current Medication List Current Medications: Active Medications Docusate Sodium (Colace -) 100 mg PO TID YAMILA Last Admin: 12/25/17 05:32 Dose: Not Given Ampicillin Sodium/Sulbactam (Sodium 3 gm/ Sodium Chloride) 100 mls @ 200 mls/ hr IVPB Q6H-IV YAMILA Last Admin: 12/25/17 08:53 Dose: 200 mls/hr Lactated Ringer's (Lactated Ringers Solution) 1,000 ml in 1,000 mls @ 250 mls/ hr IV ASDIR YAMILA Stop: 12/25/17 17:00 Lactated Ringer's (Lactated Ringers Solution) 1,000 ml in 1,000 mls @ 200 mls/ hr IV ASDIR YAMILA Stop: 12/25/17 23:00 Lactated Ringer's (Lactated Ringers Solution) 1,000 ml in 1,000 mls @ 175 mls/ hr IV ASDIR YAMILA Stop: 12/26/17 05:00 Lactated Ringer's (Lactated Ringers Solution) 1,000 ml in 1,000 mls @ 150 mls/ hr IV ASDIR YAMILA Morphine Sulfate (Morphine Sulfate) 2 mg IVPUSH Q4H PRN PRN Reason: PAIN LEVEL 6-10 Ondansetron HCl (Zofran Injection) 4 mg IVPB Q6H PRN PRN Reason: NAUSEA Last Admin: 12/24/17 21:29 Dose: 4 mg - Objective Vital Signs: Vital Signs Temperature 97.4 F L 12/25/17 15:52 Pulse Rate 74 12/25/17 15:52 Respiratory Rate 18 12/25/17 15:52 Blood Pressure 131/75 12/25/17 15:52 O2 Sat by Pulse Oximetry (%) 99 12/25/17 11:53 Labs: CBC, BMP 12/25/17 07:30 12/25/17 07:30 INR, PTT INR 1.09 (0.83-1.09) 12/25/17 07:30 Problem List - Problems (1) Calculus of gallbladder Code(s): K80.20 - CALCULUS OF GALLBLADDER W/O CHOLECYSTITIS W/O OBSTRUCTION (2) Choledocholithiasis Code(s): K80.50 - CALCULUS OF BILE DUCT W/O CHOLANGITIS OR CHOLECYST W/O OBST (3) Abnormal liver enzymes Code(s): R74.8 - ABNORMAL LEVELS OF OTHER SERUM ENZYMES (4) Obesity Code(s): E66.9 - OBESITY, UNSPECIFIED Assessment/Plan ERCP findings noted. S/P removal of CBD stone. Follow labs, cholecystectomy later.
--- NOTE | 2017-12-25 16:18 | PN ---
Teaching Attending Note Name of Resident: Luke Gonsalez ATTENDING PHYSICIAN STATEMENT I saw and evaluated the patient. I reviewed the resident's note and discussed the case with the resident. I agree with the resident's findings and plan as documented. SUBJECTIVE:seen after ERCP No fever or chills . No abd pain, no N/V OBJECTIVE: NAD, AAOx3. MMM, no LAP in neck. no facial droop, EOMI, round equal pupils, reactive to light. CV: RRR, 2/6 SM At LUSB . Lungs: CATB ext : NO edema , or erythema ABd:L soft, ND, NL BS , TTP in RUQ, with + Kaur's and no rebound tenderness Assessment/Plan: 22 y/o lady with recent vaginal delivery who presented with RUQ pain x 3 days . 1- acute ascending cholangitis : due to CBD stone. s/o ERCP with removal of stone - HIDA pending - LR for hydration post ERCP - avoid blood thinners for now - clears - cont unasyn - pain control - ? timing of CCY 2- Asymptomatic pyuria. 3- DVT PX on hold after ERCP SCDS. encouraged ambulation
[2017-12-26] MEDS: AMPICILLIN NA/SULBACTAM NA 3 GM in SODIUM CHLORIDE 100 ML IVPB SCH ×4 (02:04→22:02)
[2017-12-26] MEDS: LACTATED RINGERS SOLUTION 1,000 ML/1,000 ML INFUS.BAG IV SCH ×2 (05:28→12:10)
[2017-12-26] MEDS: DOCUSATE SODIUM 100 MG CAPSULE (FP) PO SCH ×3 (05:42→22:02)
[2017-12-26 07:49] LABS: BASO % 0.5 % (0-2.0); EOS % 3.3 % (0-4.5); HEMATOCRIT 35.7 % (32.4-45.2); HEMOGLOBIN 11.9 GM/dL (10.7-15.3); LYMPH % 30.4 % (8-40); MCH 28.3 pg (25.7-33.7); MCHC 33.3 g/dl (32.0-36.0); MEAN CELL VOLUME 84.9 fl (80-96); MEAN PLT VOLUME 7.5 fl (7.5-11.1); MONO % 6.9 % (3.8-10.2); NEUT % 58.9 % (42.8-82.8); PLATELET COUNT 328 K/MM3 (134-434); RDW 14.9 % (11.6-15.6)
[2017-12-26 08:02] LABS: CHLORIDE 106 mmol/L (98-107); POTASSIUM 3.7 mmol/L (3.5-5.1); SODIUM 142 mmol/L (136-145)
[2017-12-26 08:15] LABS: ALK PHOS 318 U/L (45-117); AMYLASE 42 U/L (25-115); ANION GAP 7 MMOL/L (8-16); BILIRUBIN,DIRECT 0.5 mg/dL (0.0-0.2); BILIRUBIN,TOTAL 0.9 mg/dL (0.2-1.0); BLOOD UREA NITROGEN 5 mg/dL (7-18); CALCIUM 9.2 mg/dL (8.5-10.1); CO2 29 mmol/L (21-32); CREATININE 0.5 mg/dL (0.55-1.02); GLUCOSE,RANDOM 95 mg/dL (74-106); LIPASE 110 U/L (73-393); SGOT/AST 110 U/L (15-37); SGPT/ALT 289 U/L (12-78); TOT PROT 6.6 g/dl (6.4-8.2)
--- NOTE | 2017-12-26 08:16 | PN ---
Progress Note (short form) - Note Progress Note: Anesthesia post op Pt seen and examined S:Alert and awake, comfortable O: Vital Signs Temperature 98.1 F 12/26/17 06:00 Pulse Rate 61 12/26/17 06:00 Respiratory Rate 18 12/26/17 06:00 Blood Pressure 120/50 12/26/17 06:00 O2 Sat by Pulse Oximetry (%) 99 12/25/17 21:00 CBC, BMP 12/26/17 07:15 A/P Current Active Problems Abnormal liver enzymes (Acute) Calculus of gallbladder (Acute) Cholecystitis (Acute) Choledocholithiasis (Acute) Hyperbilirubinemia (Acute) Obesity (Acute) s/p ERCP Doing well post op Continue current care Krishna Hollins MD
--- NOTE | 2017-12-26 09:10 | PN ---
Physical Exam: SUBJECTIVE: Patient seen and examined at bedside this morning. States she has some "throat pain". Denies fevers, chill, shortness of breath, chest pain, palpitations, nausea, vomiting, diarrhea, melena, hematochezia, dysuria, hematuria. OBJECTIVE: Vital Signs Period Temp Pulse Resp BP Sys/Brown Pulse Ox Last 24 Hr 97.4 F-99.0 F 61-80 16-20 112-139/50-84 95-100 GENERAL: The patient is awake, alert, and oriented to person, place, time in no acute distress. HEAD: Normocephalic, atraumatic. EYES: PERRLA, extraocular movements intact, sclera anicteric, conjunctiva clear. ENT: Oropharynx clear without exudates, slightly dry mucous membranes. NECK: Trachea midline, full range of motion, supple without lymphadenopathy. LUNGS: Breath sounds equal, clear to auscultation bilaterally, no wheezes, no crackles, no accessory muscle use. HEART: Regular rate and rhythm, S1, S2. 2/6 Holosystolic mumur best auscultated at apex, without appreciable radiation. ABDOMEN: Soft, nontender, nondistended, hypoactive bowel sounds, no guarding, no rebound, no hepatosplenomegaly, no masses. Negative Kaur's sign today upon my exam. EXTREMITIES: 2+ pulses radial and DP. Warm, well-perfused, no lower extremity edema B/L. NEUROLOGICAL: Cranial nerves II through XII grossly intact. Normal speech, no gross focal deficits. PSYCH: Appropriate mood and affect upon my exam today. SKIN: Warm, dry, normal turgor, no rashes or lesions noted. Laboratory Results - last 24 hr 12/26/17 12/26/17 07:15 07:15 WBC 7.0 RBC 4.20 Hgb 11.9 Hct 35.7 MCV 84.9 MCH 28.3 MCHC 33.3 RDW 14.9 Plt Count 328 MPV 7.5 Absolute Neuts (auto) 4.1 Neutrophils % 58.9 Lymphocytes % 30.4 D Monocytes % 6.9 Eosinophils % 3.3 Basophils % 0.5 Nucleated RBC % 0 Sodium 142 Potassium 3.7 Chloride 106 Carbon Dioxide 29 Anion Gap 7 L BUN 5 L Creatinine 0.5 L Creat Clearance w eGFR > 60 Random Glucose 95 Calcium 9.2 Total Bilirubin 0.9 D Direct Bilirubin 0.5 H AST 110 H ALT 289 H Alkaline Phosphatase 318 H D C-Reactive Protein 3.1 H Total Protein 6.6 Albumin 3.0 L Total Amylase 42 Lipase 110 Active Medications Generic Name Dose Route Start Last Admin Trade Name Freq PRN Reason Stop Dose Admin Docusate Sodium 100 mg 12/24/17 14:00 12/26/17 05:42 Colace - PO Not Given TID YAMILA Ampicillin Sodium/Sulbactam 100 mls @ 200 mls/hr 12/24/17 09:45 12/26/17 02: 04 Sodium 3 gm/ Sodium Chloride IVPB 200 mls/hr Q6H-IV YAMILA Administration Lactated Ringer's 1,000 ml in 1,000 mls @ 150 mls/hr 12/26/17 05:00 12/26/17 05:28 Lactated Ringers Solution IV 150 mls/hr ASDIR YAMILA Administration Morphine Sulfate 2 mg 12/25/17 11:11 Morphine Sulfate IVPUSH Q4H PRN PAIN LEVEL 6-10 Ondansetron HCl 4 mg 12/24/17 09:45 12/24/17 21:29 Zofran Injection IVPB 4 mg Q6H PRN Administration NAUSEA ASSESSMENT/PLAN: Patient is a 22 year old female who recently gave to baby girl earlier this month, presents with complaint of RUQ abdominal pain radiating to the back. Admitted for cholecystitis vs choledocholithiasis. . Cholecystitis vs Choledocolithiasis -Patient is POD 1 s/p ERCP. Distal CBD stone removed. -Surgery consul (Dr. Mcfarland) appreciated: Patient is for Lap Rajni tomorrow. NPO after midnight. -Unasyn 3gm Q6H IV -Pain control with morphine 2mg IV Q4 -Zofran 4mg IV Q6H PRN for nausea. FEN -IV LR at 150ml/hr -Will follow CMP -NPO after midnight. Prophylaxis -SCDs B/L lower extremities Disposition: -Continue care on medical- surgical floor, pending laparoscopic rjani Visit type - Emergency Visit Emergency Visit: Yes ED Registration Date: 12/23/17 Care time: The patient presented to the Emergency Department on the above date and was hospitalized for further evaluation of their emergent condition. - New Patient This patient is new to me today: No - Critical Care Critical Care patient: No - Discharge Referral Referred to [facility] No
[2017-12-26] MEDS ORDERED: BENZOCAINE/MENTH/CETYLPYRD CL 1 EACH LOZENGE MM PRN (11:11)
[2017-12-26] MEDS ORDERED: IBUPROFEN 400 MG TABLET (FP) PO PRN (11:12)
--- NOTE | 2017-12-26 13:07 | PN ---
Progress Note, Physician - Current Medication List Current Medications: Active Medications Benzocaine/Menthol (Cepacol Lozenge -) 1 each MM PRN PRN PRN Reason: SORE THROAT Docusate Sodium (Colace -) 100 mg PO TID YAMILA Last Admin: 12/26/17 05:42 Dose: Not Given Ampicillin Sodium/Sulbactam (Sodium 3 gm/ Sodium Chloride) 100 mls @ 200 mls/ hr IVPB Q6H-IV YAMILA Last Admin: 12/26/17 11:27 Dose: 200 mls/hr Lactated Ringer's (Lactated Ringers Solution) 1,000 ml in 1,000 mls @ 150 mls/ hr IV ASDIR YAMILA Last Admin: 12/26/17 12:10 Dose: 150 mls/hr Morphine Sulfate (Morphine Sulfate) 2 mg IVPUSH Q4H PRN PRN Reason: PAIN LEVEL 6-10 Ondansetron HCl (Zofran Injection) 4 mg IVPB Q6H PRN PRN Reason: NAUSEA Last Admin: 12/24/17 21:29 Dose: 4 mg Tramadol HCl (Ultram -) 50 mg PO Q4H PRN PRN Reason: PAIN LEVEL 1-5 - Objective Vital Signs: Vital Signs Temperature 98.1 F 12/26/17 06:00 Pulse Rate 61 12/26/17 06:00 Respiratory Rate 18 12/26/17 06:00 Blood Pressure 120/50 12/26/17 06:00 O2 Sat by Pulse Oximetry (%) 99 12/25/17 21:00 Labs: CBC, BMP 12/26/17 07:15 12/26/17 07:15 INR, PTT INR 1.09 (0.83-1.09) 12/25/17 07:30 Problem List - Problems (1) Calculus of gallbladder Code(s): K80.20 - CALCULUS OF GALLBLADDER W/O CHOLECYSTITIS W/O OBSTRUCTION (2) Choledocholithiasis Code(s): K80.50 - CALCULUS OF BILE DUCT W/O CHOLANGITIS OR CHOLECYST W/O OBST (3) Abnormal liver enzymes Code(s): R74.8 - ABNORMAL LEVELS OF OTHER SERUM ENZYMES (4) Obesity Code(s): E66.9 - OBESITY, UNSPECIFIED Assessment/Plan Surgery: Patient is comfortable. Not in pain. Abdomen is soft, not tender. Liver enzymes, trending down, For cholecystectomy tomorrow. Patient is informed. Procedure was explained, with risks, benefits and complications, including, bleeding, bile leak, ductal injury , and conversion to open.
--- NOTE | 2017-12-26 16:00 | PN ---
Teaching Attending Note Name of Resident: Luke Gonsalez ATTENDING PHYSICIAN STATEMENT I saw and evaluated the patient. I reviewed the resident's note and discussed the case with the resident. I agree with the resident's findings and plan as documented. SUBJECTIVE: no fever or chills. denies abd pain. no N/V. wants to go home OBJECTIVE: NAD, AAOx3. MMM CV: RRR, 2/6 SM At LUSB . Lungs: CATB ext : NO edema , or erythema ABd:L soft, ND, NL BS , minimal TTP in RUQ, Assessment/Plan: 22 y/o lady with recent vaginal delivery who presented with RUQ pain x 3 days . 1- Acute ascending cholangitis : due to CBD stone. s/p ERCP with removal of stone yesterday -HIDA with no filling of gall bladder indicating acute cholecystitis - cont IVF - cont unasyn - avoid blood thinners for now - CCY tomorrow - follow LFTs ( improving ) 2- Asymptomatic pyuria. 3- DVT PX on hold chemical prophylaxis after ERCP SCDS. encouraged ambulation Patient wanted to leave AMA. without treatment, the risk of sepsis, gall bladder perforation and was explained to her by Dr. Reza. she agreed to stay . possible dc on AM if she does well after surgery
--- NOTE | 2017-12-26 16:02 | PN ---
Teaching Attending Note Name of Resident: Luke Gonsalez ATTENDING PHYSICIAN STATEMENT I saw and evaluated the patient. I reviewed the resident's note and discussed the case with the resident. I agree with the resident's findings and plan as documented. SUBJECTIVE: No fever or chills . No SOB , no CP .No diarrhea OBJECTIVE:
[2017-12-26] MEDS: traMADol HCL 50 MG TABLET PO PRN ×2 (16:25→22:29)
[2017-12-26] MEDS ORDERED: PT OWN MED DRAWER 7, Y5N ONE (21:39)
[2017-12-27] MEDS ORDERED: PT OWN MED DRAWER 7, Y5N ONE ×3 (00:59→15:23)
[2017-12-27] MEDS: AMPICILLIN NA/SULBACTAM NA 3 GM in SODIUM CHLORIDE 100 ML IVPB SCH ×3 (02:00→16:28)
[2017-12-27] MEDS: LACTATED RINGERS SOLUTION 1,000 ML/1,000 ML INFUS.BAG IV SCH ×2 (02:01→05:06)
[2017-12-27] MEDS: DOCUSATE SODIUM 100 MG CAPSULE (FP) PO SCH ×2 (05:06→16:28)
[2017-12-27 07:13] LABS: BASO % 0.3 % (0-2.0); EOS % 3.7 % (0-4.5); HEMATOCRIT 36.3 % (32.4-45.2); LYMPH % 42.4 % (8-40); MCH 28.4 pg (25.7-33.7); MCHC 33.1 g/dl (32.0-36.0); MEAN PLT VOLUME 7.4 fl (7.5-11.1); MONO % 5.1 % (3.8-10.2); NEUT % 48.5 % (42.8-82.8); PLATELET COUNT 363 K/MM3 (134-434); RBC 4.22 M/mm3 (3.60-5.2); RDW 14.7 % (11.6-15.6); WHITE BLOOD COUNT 6.3 K/mm3 (4.0-10.0)
[2017-12-27 08:34] LABS: CHLORIDE 103 mmol/L (98-107); POTASSIUM 3.8 mmol/L (3.5-5.1); SODIUM 141 mmol/L (136-145)
[2017-12-27 08:44] LABS: ALBUMIN 3.2 g/dl (3.4-5.0); ALK PHOS 266 U/L (45-117); ANION GAP 7 MMOL/L (8-16); BILIRUBIN,TOTAL 0.7 mg/dL (0.2-1.0); BLOOD UREA NITROGEN 5 mg/dL (7-18); CALCIUM 8.9 mg/dL (8.5-10.1); CO2 31 mmol/L (21-32); CREATININE 0.6 mg/dL (0.55-1.02); GLUCOSE,RANDOM 82 mg/dL (74-106); PHOSPHOROUS 4.7 mg/dL (2.5-4.9); SGOT/AST 64 U/L (15-37); SGPT/ALT 212 U/L (12-78); TOT PROT 6.8 g/dl (6.4-8.2)
--- NOTE | 2017-12-27 08:49 | PN ---
Teaching Attending Note Name of Resident: Luke Gonsalez ATTENDING PHYSICIAN STATEMENT I saw and evaluated the patient. I reviewed the resident's note and discussed the case with the resident. I agree with the resident's findings and plan as documented. SUBJECTIVE: OBJECTIVE: Vital Signs Temperature 98.3 F 12/27/17 06:00 Pulse Rate 71 12/27/17 06:00 Respiratory Rate 20 12/27/17 06:00 Blood Pressure 115/56 12/27/17 06:00 O2 Sat by Pulse Oximetry (%) 99 12/26/17 21:00 CBCD WBC 6.3 K/mm3 (4.0-10.0) 12/27/17 06:30 RBC 4.22 M/mm3 (3.60-5.2) 12/27/17 06:30 Hgb 12.0 GM/dL (10.7-15.3) 12/27/17 06:30 Hct 36.3 % (32.4-45.2) 12/27/17 06:30 MCV 86.0 fl (80-96) 12/27/17 06:30 MCHC 33.1 g/dl (32.0-36.0) 12/27/17 06:30 RDW 14.7 % (11.6-15.6) 12/27/17 06:30 Plt Count 363 K/MM3 (134-434) 12/27/17 06:30 MPV 7.4 fl (7.5-11.1) L 12/27/17 06:30 CMP Sodium 141 mmol/L (136-145) 12/27/17 06:30 Potassium 3.8 mmol/L (3.5-5.1) 12/27/17 06:30 Chloride 103 mmol/L (98-107) 12/27/17 06:30 Carbon Dioxide 31 mmol/L (21-32) 12/27/17 06:30 Anion Gap 7 MMOL/L (8-16) L 12/27/17 06:30 BUN 5 mg/dL (7-18) L 12/27/17 06:30 Creatinine 0.6 mg/dL (0.55-1.02) 12/27/17 06:30 Creat Clearance w eGFR > 60 (>60) 12/27/17 06:30 Random Glucose 82 mg/dL (74-106) 12/27/17 06:30 Calcium 8.9 mg/dL (8.5-10.1) 12/27/17 06:30 Total Bilirubin 0.7 mg/dL (0.2-1.0) 12/27/17 06:30 AST 64 U/L (15-37) H 12/27/17 06:30 ALT 212 U/L (12-78) H 12/27/17 06:30 Alkaline Phosphatase 266 U/L (45-117) H D 12/27/17 06:30 Total Protein 6.8 g/dl (6.4-8.2) 12/27/17 06:30 Albumin 3.2 g/dl (3.4-5.0) L 12/27/17 06:30 CARDIAC ENZYMES Troponin I < 0.02 ng/ml (0.00-0.05) 12/23/17 16:40 Current Medications Generic Name Dose Route Start Last Admin Trade Name Freq PRN Reason Stop Dose Admin Benzocaine/Menthol 1 each 12/26/17 11:11 Cepacol Lozenge - MM PRN PRN SORE THROAT Docusate Sodium 100 mg 12/24/17 14:00 12/27/17 05:06 Colace - PO Not Given TID YAMILA Ampicillin Sodium/Sulbactam 100 mls @ 200 mls/hr 12/24/17 09:45 12/27/17 02: 00 Sodium 3 gm/ Sodium Chloride IVPB 200 mls/hr Q6H-IV YAMILA Administration Lactated Ringer's 1,000 ml in 1,000 mls @ 150 mls/hr 12/26/17 05:00 12/27/17 05:06 Lactated Ringers Solution IV Not Given ASDIR YAMILA Morphine Sulfate 2 mg 12/25/17 11:11 Morphine Sulfate IVPUSH Q4H PRN PAIN LEVEL 6-10 Ondansetron HCl 4 mg 12/24/17 09:45 12/24/17 21:29 Zofran Injection IVPB 4 mg Q6H PRN Administration NAUSEA Tramadol HCl 50 mg 12/26/17 11:47 12/26/17 22:29 Ultram - PO 50 mg Q4H PRN Administration PAIN LEVEL 1-5 Home Medications Medication Instructions Recorded NK [No Known Home Medication] 12/23/17 ASSESSMENT AND PLAN: 22 y/o lady with recent vaginal delivery who presented with RUQ pain x 3 days . # POD#0 Laparoscopic cholecystectomy. Calculus of gallbladder and common bile duct with obstruction with acute cholangitis s/p ERCP will discharge patient on Augmentin 875mg bid x 10d # Asymptomatic pyuria on Augmentin patient tolerated diet well, discussed with Dr. Carrie mata to discharge the patient home on oral Augmentin for 10 days
[2017-12-27] MEDS ORDERED: LIDOCAINE HCL/PF 2% SDV 5ML VIAL ONE (13:08)
[2017-12-27] MEDS ORDERED: fentaNYL CITRATE 250 MCG/5 ML VIAL ONE (13:08)
[2017-12-27] MEDS ORDERED: DEXAMETHASONE SOD PHOSPHATE 4 MG/1 ML VIAL ONE (13:08)
[2017-12-27] MEDS ORDERED: MIDAZOLAM HCL 2 MG/2 ML SINGLE DOSE VIAL ONE ×2 (13:09)
[2017-12-27] MEDS ORDERED: PROPOFOL 20 ML ONE ×2 (13:09)
[2017-12-27] MEDS ORDERED: ROCURONIUM BROMIDE 50 MG/5 ML VIAL ONE (13:10)
[2017-12-27] MEDS ORDERED: BUPIVACAINE HCL/PF 0.25% (2.5MG/ML) 10 ML VIAL ONE (13:50)
[2017-12-27] MEDS ORDERED: NEOSTIGMINE METHYLSULFATE 0.5 MG/ML - 10 ML MDV ONE (14:28)
[2017-12-27] MEDS ORDERED: KETOROLAC TROMETHAMINE 30 MG/1 ML VIAL ONE (14:29)
[2017-12-27] MEDS ORDERED: GLYCOPYRROLATE 0.2 MG/1 ML VIAL ONE (14:29)
[2017-12-27] MEDS ORDERED: BUPIVACAINE HCL/PF 0.25% (2.5MG/ML) 10 ML VIAL IJ ONE ×2 (14:34)
--- NOTE | 2017-12-27 14:57 | OP ---
Operative Note - Note: Operative Date: 12/27/17 Pre-Operative Diagnosis: Calculus of gallbladder and common bile duct with obstruction. Operation: Laparoscopic cholecystectomy. Findings: Empyema of gallbladder with pus in the gallbladder. Post-Operative Diagnosis: Same as Pre-op Surgeon: Pauline Mcfarland Power And Recovery Shift Engineer: Libertad Huntley Anesthesiologist/FOOD PRODUCTION MANAGER: Pernell Doll I Anesthesia: General Specimens Removed: Gallbladder Estimated Blood Loss (mls): 5 Operative Report Dictated: Yes
[2017-12-27] MEDS ORDERED: ONDANSETRON 4 MG/2 ML VIAL IVPUSH PRN (15:01)
[2017-12-27] MEDS ORDERED: PROMETHAZINE HCL 25 MG/1 ML VIAL IVPUSH PRN (15:01)
[2017-12-27] MEDS ORDERED: traMADol HCL 50 MG TABLET PO PRN (15:08)
[2017-12-27] MEDS ORDERED: ONDANSETRON 4 MG/2 ML VIAL IVPB PRN (15:08)
[2017-12-27] MEDS ORDERED: BENZOCAINE/MENTH/CETYLPYRD CL 1 EACH LOZENGE MM PRN (15:08)
[2017-12-27] MEDS ORDERED: LACTATED RINGERS SOLUTION 1,000 ML IV SCH (15:15)
--- NOTE | 2017-12-27 15:20 | SURG ---
Surgery Switch Maker Note Switch Maker: Libertad Huntley PA-C Date of Service: 12/27/17 Diagnosis: Calculus of gallbladder and common bile duct with obstruction. Procedure: Laparoscopic cholecystectomy. I was present for the entirety of the operative procedure. For further detail, please refer to operative report. Visit type - Case Type Case Type: ED Admission - Emergency Emergency Visit: Yes ED Registration Date: 12/23/17 Care time: The patient presented to the Emergency Department on the above date and was hospitalized for further evaluation of their emergent condition. - New patient This patient is new to me today: Yes Date on this admission: 12/27/17
[2017-12-27] MEDS ORDERED: AMPICILLIN NA/SULBACTAM NA 3 GM/100 ML PRE-DOCKED IVPB ONE (15:30)
--- NOTE | 2017-12-27 15:33 | OP ---
DATE OF OPERATION: 12/27/2017 PREOPERATIVE DIAGNOSIS: Cholelithiasis and choledocholithiasis with obstruction. POSTOPERATIVE DIAGNOSIS: Cholelithiasis and choledocholithiasis with obstruction, plus empyema of the gallbladder. PROCEDURE PERFORMED: Laparoscopic cholecystectomy. SURGEON: Shanthi Mcfarland MD TIME RECORDER: CAMRON Delgado ANESTHESIA: General anesthesia. INDICATIONS: This 22-year-old woman was admitted with upper abdominal pain. Her workup revealed a dilated common bile duct as well as a distended gallbladder with cholecystitis and obstruction. MRCP revealed common duct stones. The patient underwent ERCP and extraction of common duct stones, along with sphincterotomy done by Dr. Remy. The common duct was relieved of obstruction, and the patient was brought in for laparoscopic cholecystectomy. Consent was obtained. The risks, benefits and complications were discussed with the patient multiple times. The patient had been on antibiotics preoperatively. DESCRIPTION OF PROCEDURE: The patient was brought to the operating room. General anesthesia was administered. She was given 2 g of Ancef. The abdomen was painted and draped. Incision was made in the infraumbilical portion of the umbilicus, which was deepened inside the skin, subcutaneous tissue and the linea alba. The peritoneum was incised, and a 10 to 12-mm laparoscopic trocar of the Jaron type was introduced into the abdominal cavity. Through this the abdomen was inflated with carbon dioxide at 6 L/min, with maximum intra-abdominal pressure of 15 mmHg. A 5-mm camera was introduced into the abdominal cavity through the 10-mm trocar. The abdomen was visualized. There were no adhesions within the abdominal cavity. Under direct vision, two 5-mm trocars were inserted in the right upper quadrant of the abdomen, after making a small incision in the skin. One was introduced along the midclavicular line and the other along the anterior axillary line 2 fingerbreadths below the costal margin. These were noted entering the abdominal cavity under direct vision with the camera. A third 5-mm trocar was then introduced in the midline in the subxiphoid area. This was entering the abdominal cavity to the right of the falciform ligament. The gallbladder was then visualized and grasped at the fundus with a grasper through the lateral 5-mm port. The gallbladder was retracted cephalad and laterally, thus exposing the infundibulum of the gallbladder. The infundibulum of the gallbladder was then grasped with another grasper through the medial 5-mm port. This was retracted inferiorly and laterally, thus exposing the triangle of Calot. Using Endoshears through the subxiphoid port, the peritoneal reflection around the cystic duct and infundibulum was incised circumferentially. By sharp and blunt dissection, the cystic duct was isolated circumferentially and visualized. This was then divided between clips. The cystic artery was brought into view, and it was likewise divided between clips. The peritoneal reflection was then incised on either side of the gallbladder. The gallbladder was dissected off the gallbladder bed all the way to the fundus of the gallbladder. The cholecystectomy was thus accomplished. Hemostasis was achieved as the gallbladder was dissected off the gallbladder bed. An Endo Catch was then introduced through the umbilical port, the camera being switched to the subxiphoid port. The gallbladder was placed in the Endo Catch and retrieved out of the abdominal cavity. There was a lot of fat around the gallbladder. In the gallbladder, there was some amount of purulent material that was aspirated. Swabs from the gallbladder were obtained for culture and antibiotic sensitivity examination. The specimen was sent to Pathology. The gallbladder fossa was then irrigated with 2 bags of normal saline. The fluid return was clear. There was no bleeding. Hemostasis was satisfactory. All fluid was evacuated. The instruments were withdrawn under direct vision. The linea alba at the midline of the umbilicus was approximated with interrupted [id number] 2-0 Vicryl sutures. The abdomen was approximated satisfactorily. There was no air leak through the midline incision. The skin was approximated with buried interrupted 4-0 Monocryl sutures. Sponge count and instrument count were correct. Local anesthesia was infiltrated into the wound. Estimated blood loss was less than 10 mL. Dermabond was applied across the skin edges. The patient tolerated the procedure well. She was extubated and sent to the recovery room in satisfactory and stable condition. Sakina [id number]
[2017-12-27 16:37] VITALS: BP 122/78; PULSE 58; TEMP 98.5
[2017-12-27] MEDS ORDERED: AMPICILLIN NA/SULBACTAM NA 3 GM in SODIUM CHLORIDE 100 ML IVPB SCH (21:00)
[2017-12-27] MEDS ORDERED: DOCUSATE SODIUM 100 MG CAPSULE (FP) PO SCH (22:00)
--- NOTE | 2017-12-28 15:55 | DS ---
Physical Exam: SUBJECTIVE: Patient seen and examined at bedside. Patient tolerated PO intake, and denied any acute complaints. She is asking to go home. Denies fevers, chill , shortness of breath, chest pain, palpitations, nausea, vomiting, diarrhea, melena, hematochezia, dysuria, hematuria. OBJECTIVE: Vital Signs Period Temp Pulse Resp BP Sys/Brown Pulse Ox Last 24 Hr 98.4 F-98.5 F 56-69 14-18 119-140/63-78 96-97 PHYSICAL EXAM GENERAL: The patient is awake, alert, and oriented to person, place, time in no acute distress. HEAD: Normocephalic, atraumatic. EYES: PERRLA, extraocular movements intact, sclera anicteric, conjunctiva clear. ENT: Oropharynx clear without exudates, slightly dry mucous membranes. NECK: Trachea midline, full range of motion, supple without lymphadenopathy. LUNGS: Breath sounds equal, clear to auscultation bilaterally, no wheezes, no crackles, no accessory muscle use. HEART: Regular rate and rhythm, S1, S2. 2/6 Holosystolic mumur best auscultated at apex, without appreciable radiation. ABDOMEN: Soft, nontender, nondistended, hypoactive bowel sounds, no guarding, no rebound. EXTREMITIES: 2+ pulses radial and DP. Warm, well-perfused, no lower extremity edema B/L. NEUROLOGICAL: Cranial nerves II through XII grossly intact. Normal speech, no gross focal deficits. PSYCH: Appropriate mood and affect upon my exam today. SKIN: Warm, dry, normal turgor, no rashes or lesions noted. LABS HOSPITAL COURSE: Date of Admission:12/23/17 Date of Discharge: 12/27/17 Patient is a 22 year old female who recently gave to baby girl earlier this month, presented with complaint of RUQ abdominal pain radiating to the back. Admitted for cholecystitis vs choledocholithiasis. HIDA scan showed no filling of the gallbladder within 2 hours of imaging. Suggestive of cystic duct obstruction and cholecystitis. MRCP showed showed cholelithiasis with thickened gallbladder wall. No intrahepatic bile duct dilation. No hepatic or bile duct dilation. No choledocolithiasis. No pancreatic duct dilation. Ascending cholangitis was treated with Unasyn. Pain controled with Morphine. Zofran for nausea. GI consult recommended ERCP. ERCP removed 1 stone from distal CBD, with purulent bile. Surgical consult recommended lap rajni. Patient tolerated procedures well. She was discharged on Augmentin 875-125 BID for next 11 days to complete antibiotics course. She was instructed to follow up with PCP, and General Surgeon within one week of discharge. Minutes to complete discharge: 35 Discharge Summary Reason For Visit: COMMON BILE DUCT CALCULUS, CHOLECYSTITIS Condition: Improved - Instructions Diet, Activity, Other Instructions: You were admitted for stones and infection in/ around your gallbladder. You had two procedures ERCP to remove the stone, and Laparoscopic Cholecystectomy to remove the gallbladder. You will need to continue taking antibiotics (Augmentin) twice daily for the next 11 days. Keep the surgical sites clean, and dry. Do not lift any heavy weights, or exert yourself while the wounds are healing. For pain, you can take Tylenol of Motrin over the counter as needed. Take with food, and be sure to hydrate adequately. It is important that you follow up with your primary care physician within the next week after discharge. It is important that you follow up with the general surgeon (Dr. Mcfarland) within two weeks after discharge. Please return to the nearest Emergency department if you experence fevers, chills, chest pain, shortness of breath, bleeding or drainage from the surgical sites. Referrals: Rogers Wu MD [Primary Care Provider] - 1 Week Pauline Mcfarland MD [Staff Physician] - 2 Weeks Disposition: HOME - Home Medications Comprehensive Discharge Medication List: Ambulatory Orders Amoxicillin/Potassium Clav [Augmentin 875-125 Tablet] 1 each PO BID 11 Days #22 tablet 12/27/17 This patient is new to me today: No Emergency Visit: Yes ED Registration Date: 12/23/17 Care time: The patient presented to the Emergency Department on the above date and was hospitalized for further evaluation of their emergent condition. Critical Care patient: No - Discharge Referral Referred to [facility] Med P.C.: No
--- NOTE | 2017-12-29 16:58 | PATH ---
Surgical Pathology Report Patient Name: ANALISA COLLINS [facility]. Rec. #: [id number] /Age/Gender: 1995 (Age: 22) / F Account: [id number] Location: [address] [place] [address] Taken: 12/27/2017 Received: 12/28/2017 Reported: 12/29/2017 Physicians: Sakina Haddad M.D. Specimen(s) Received GALLBLADDER Clinical History Common bile duct calculus, cholecystitis Final Diagnosis GALLBLADDER, LAPAROSCOPIC CHOLECYSTECTOMY: ACUTE AND CHRONIC CHOLECYSTITIS, CHOLESTEROLOSIS, AND CHOLELITHIASIS. ONE BENIGN PERIDUCTAL LYMPH NODE (0/). Electronically Signed Nathalie Lambert M.D. Gross Description Received in formalin, labeled "gallbladder," is a 7.5 x 2.3 x 1.5 cm. gallbladder with a 0.2 cm. in length portion of cystic duct attached. There is a 0.7 cm in greatest dimension periductal lymph node present. The outer surface is spears-santo with a focal defect and varies from smooth to shaggy. The lumen contains clear mucinous bile and abundant green, spherical choleliths averaging 0.5 cm in greatest dimension. The mucosa is red-brown with gold cholesterol stippling. The wall of the gallbladder averages 0.3 cm. in thickness. Toll Transmission Worker sections are submitted in one cassette. /12/28/2017 saudi/12/28/2017
== END 2017-12-27 19:23 | disposition home or self-care (01) | DRG 951 ==
LOC: JER 14:44 → JERBED 18:37 → J5S 22:00
PROVIDERS: ADMIT Internal Medicine; ATTEND Internal Medicine
PROC: 0FC98ZZ Extirpation of Matter from Common Bile Duct, Via Natural or Artificial Opening Endoscopic (ICD-10-PCS; 2017-12-25)
PROC: 0FT44ZZ Resection of Gallbladder, Percutaneous Endoscopic Approach (ICD-10-PCS; principal; 2017-12-27 12:30)
DX: O99.63 Diseases of the digestive system complicating the puerperium (principal); K80.63 Calculus of gallbladder and bile duct with acute cholecystitis with obstruction; E66.9 Obesity, unspecified; Z68.36 Body mass index [BMI] 36.0-36.9, adult; O86.20 Urinary tract infection following delivery, unspecified
CPT/HCPCS: 36415; 71046-TC-FY; 74181-TC; 76000-TC-FY; 76705-TC; 78226-TC; 80053; 81003; 81015; 82150; 82248; 83690; 83735; 84100; 84484; 84703; 85025; 85027; 85610; 86140; 86850; 86900; 86901; 87040; 87070; 87075; 87086; 87205; 88304-TC; 93005; 93010; 94760; 99284-25; A9537; J0131; J7030

== ENCOUNTER 2021-01-28 16:34 | Emergency (ER) | payer OTHER ==
[2021-01-28 16:41] VITALS: BP 133/82; PULSE 65; TEMP 98.2; BMI 33.9
[2021-01-28] MEDS ORDERED: NAPROXEN 500 MG TABLET PO ONE (17:47)
[2021-01-28] MEDS ORDERED: NAPROXEN 500 MG TABLET ONE (17:48)
== END 2021-01-28 17:56 | disposition home or self-care (01) ==
LOC: JERFT 16:34
DX: M25.562 Pain in left knee (principal)
CPT/HCPCS: 73562-TC-LT-FY; 99284-25

== ENCOUNTER 2021-11-01 20:53 | Emergency (ER) | payer OTHER ==
[2021-11-01 21:04] VITALS: BMI 35.8
[2021-11-02 01:13] VITALS: BP 131/70; PULSE 81; TEMP 98.2
== END 2021-11-02 00:40 | disposition home or self-care (01) ==
LOC: JER 20:53
DX: O36.8190 Decreased fetal movements, unspecified trimester, not applicable or unspecified (principal); N39.0 Urinary tract infection, site not specified; Z3A.20 20 weeks gestation of pregnancy
CPT/HCPCS: 99281-25

== ENCOUNTER 2022-03-20 06:15 | Inpatient (IN) | payer OTHER ==
[2022-03-20] MEDS ORDERED: PROMETHAZINE HCL 25 MG/1 ML VIAL IVPUSH ONE (06:40)
[2022-03-20] MEDS ORDERED: BUTORPHANOL TARTRATE 1 MG/ML VIAL IVPB PRN (06:40)
[2022-03-20] MEDS ORDERED: AMPICILLIN - 2 GM in SODIUM CHLORIDE 100 ML IVPB ONE (06:42)
[2022-03-20] MEDS ORDERED: AMPICILLIN SODIUM 2 GM VIAL ONE (06:43)
[2022-03-20] MEDS: ELECTROLYTE-148 SOLN 1,000 ML IV SCH ×2 (06:50→10:52)
[2022-03-20 07:12] VITALS: BMI 38.7
[2022-03-20 07:26] LABS: BASO % 0.3 % (0-2.0); EOS % 0.4 % (0-4.5); HEMATOCRIT 35.6 % (32.4-45.2); HEMOGLOBIN 11.8 GM/dL (10.7-15.3); MCH 27.9 pg (25.7-33.7); MCHC 33.2 g/dl (32.0-36.0); MEAN CELL VOLUME 84.1 fl (80-96); MEAN PLT VOLUME 8.9 fl (7.5-11.1); MONO % 6.7 % (3.8-10.2); NEUT % 71.6 % (42.8-82.8); PLATELET COUNT 246 10^3/uL (134-434); RBC 4.23 M/mm3 (3.60-5.2); RDW 16.1 % (11.6-15.6); WHITE BLOOD COUNT 9.4 K/mm3 (4.0-10.0)
[2022-03-20 07:29] LABS: CALCIUM 8.7 mg/dL (8.5-10.1)
[2022-03-20 07:30] LABS: BLOOD UREA NITROGEN 8.6 mg/dL (7-18)
[2022-03-20 07:32] LABS: INR 0.9 (0.83-1.09); PROTHROMBIN TIME (PATIENT) 10.3 SEC (9.7-13.0)
[2022-03-20 07:33] LABS: CREATININE 0.4 mg/dL (0.55-1.3)
[2022-03-20 07:35] LABS: ACTIVATED PTT 29.2 SECONDS (25.2-36.5)
[2022-03-20] MEDS ORDERED: BUTORPHANOL TARTRATE 2 MG/ML VIAL ONE (07:59)
[2022-03-20] MEDS ORDERED: PROMETHAZINE HCL 25 MG/1 ML VIAL ONE (07:59)
[2022-03-20] MEDS ORDERED: OXYTOCIN 30 UNITS in 0.9% NS 30 UNIT/500 ML INFUS.BAG IVPB SCH (08:30)
[2022-03-20 08:46] LABS: HIV INTERPRETATION NEGATIVE (NEGATIVE)
[2022-03-20] MEDS ORDERED: FENTANYL/BUPIVACAINE/NS/PF - PCEA - 50 ML DISP.SYRIN EP ONE (10:01)
[2022-03-20] MEDS ORDERED: BUPIVACAINE HCL/PF 0.25% (2.5MG/ML) 10 ML VIAL ONE ×2 (10:15→12:09)
[2022-03-20] MEDS: FENTANYL/BUPIVACAINE/NS/PF - PCEA - 50 ML DISP.SYRIN EP SCH ×2 (10:30→21:58)
[2022-03-20] MEDS ORDERED: SODIUM CHLORIDE 100 ML IVPB ONE (10:39)
[2022-03-20] MEDS ORDERED: AMPICILLIN SODIUM 1 GM VIAL ONE (10:40)
[2022-03-20] MEDS ORDERED: AMPICILLIN - 1 GM in SODIUM CHLORIDE 100 ML IVPB SCH (10:45)
[2022-03-20] MEDS ORDERED: NALOXONE HCL 0.4 MG/ML VIAL IVPUSH PRN (10:46)
[2022-03-20] MEDS ORDERED: OXYTOCIN 30 UNITS in 0.9% NS 30 UNIT/500 ML INFUS.BAG IVPB ONE (12:15)
[2022-03-20] MEDS ORDERED: OXYTOCIN 20 UNITS in 0.9% NS 20 UNIT/1,000 ML INFUS.BAG IV ONE (13:47)
[2022-03-20] MEDS ORDERED: BISACODYL 10 MG SUPP.RECT RC PRN (14:19)
[2022-03-20] MEDS ORDERED: BENZOCAINE 28 GM HEMORRHOIDAL OINTMENT TP PRN (14:19)
[2022-03-20] MEDS ORDERED: METHYLERGONOVINE MALEATE 0.2 MG/1 ML AMP IM PRN (14:19)
[2022-03-20] MEDS ORDERED: BENZOCAINE 20% 57 GM BOTTLE TP PRN (14:19)
[2022-03-20] MEDS ORDERED: WITCH HAZEL 50% (TUCKS) 40 PAD/JAR PAD TP PRN (14:19)
[2022-03-20] MEDS ORDERED: OXYTOCIN 20 UNITS in 0.9% NS 20 UNIT/1,000 ML INFUS.BAG IV SCH (14:30)
[2022-03-20 14:59] LABS: ARTERIAL BLD GAS O2 SATURATION 31.7 % (95-98); ARTERIAL BLOOD GAS BASE EXCESS -5.1 mmol/L (-2-2); ARTERIAL BLOOD GAS pH 7.202 (7.350-7.450)
[2022-03-20 15:02] LABS: ARTERIAL BLOOD GAS PO2 24.2 mmHg (80-100)
[2022-03-20 15:05] LABS: VENOUS BASE EXCESS -5.7 mmol/L (-2-2); VENOUS O2 SATURATION 70.7 % (70-80); VENOUS PCO2 43.3 mmHg (38-52); VENOUS PH 7.296 (7.310-7.410)
[2022-03-20] MEDS: IBUPROFEN 600 MG TABLET (FP) PO PRN (15:39)
[2022-03-20] MEDS: FERROUS SO4 325 MG TABLET (FP) PO SCH (18:20)
[2022-03-20] MEDS: ACETAMINOPHEN 325 MG TABLET (FP) PO PRN (18:29)
[2022-03-20] MEDS: oxyCODONE HCL 5 MG TABLET PO PRN (21:59)
[2022-03-21] MEDS: FERROUS SO4 325 MG TABLET (FP) PO SCH ×3 (08:55→17:20)
[2022-03-21 09:00] LABS: BASO % 0.3 % (0-2.0); EOS % 0.6 % (0-4.5); HEMATOCRIT 29.2 % (32.4-45.2); HEMOGLOBIN 9.9 GM/dL (10.7-15.3); LYMPH % 35.2 % (8-40); MCH 28.5 pg (25.7-33.7); MCHC 33.8 g/dl (32.0-36.0); MEAN CELL VOLUME 84.2 fl (80-96); MEAN PLT VOLUME 8.8 fl (7.5-11.1); MONO % 7.5 % (3.8-10.2); NEUT % 56.4 % (42.8-82.8); PLATELET COUNT 223 10^3/uL (134-434); RBC 3.47 M/mm3 (3.60-5.2); RDW 16.1 % (11.6-15.6); WHITE BLOOD COUNT 7.2 K/mm3 (4.0-10.0)
[2022-03-21] MEDS: PRENATAL VITAMINS W/ FOLIC ACID TABLET (FP) PO SCH (09:22)
[2022-03-21] MEDS: oxyCODONE HCL 5 MG TABLET PO PRN (09:22)
[2022-03-21] MEDS: IBUPROFEN 600 MG TABLET (FP) PO PRN (17:20)
[2022-03-21] MEDS ORDERED: SENNOSIDES/DOCUSATE COMBO (SENNA PLUS) TABLET (UD) PO PRN (22:00)
[2022-03-22] MEDS: IBUPROFEN 600 MG TABLET (FP) PO PRN (04:51)
[2022-03-22] MEDS: FERROUS SO4 325 MG TABLET (FP) PO SCH (08:48)
[2022-03-22] MEDS: ACETAMINOPHEN 325 MG TABLET (FP) PO PRN (08:49)
[2022-03-22] MEDS: PRENATAL VITAMINS W/ FOLIC ACID TABLET (FP) PO SCH (09:35)
[2022-03-22 09:57] VITALS: BP 121/69; PULSE 75; TEMP 98.1
[2022-03-22 11:31] VITALS: RESP 16
== END 2022-03-22 11:00 | disposition home or self-care (01) | DRG 560 ==
LOC: JLDR 06:15 → J3W 15:15
PROVIDERS: ADMIT Obstetrics & Gynecology; ATTEND Obstetrics & Gynecology
PROC: 10E0XZZ Delivery of Products of Conception, External Approach (ICD-10-PCS; principal; 2022-03-20)
DX: O70.0 First degree perineal laceration during delivery (principal); Z3A.39 39 weeks gestation of pregnancy; Z37.0 Single live birth
CPT/HCPCS: 36415; 36600; 59025; 59409; 80048; 82803; 85025; 85610; 85730; 86780; 86850; 86900; 86901; 87389; C9803-CS; U0003; U0005

== ENCOUNTER 2022-05-01 17:40 | Emergency (ER) | payer OTHER ==
[2022-05-01 17:47] VITALS: BP 131/85; PULSE 89; RESP 18; TEMP 97; BMI 35.5
[2022-05-01] MEDS ORDERED: ACETAMINOPHEN 500 MG TABLET (FP) ONE (19:46)
[2022-05-01] MEDS ORDERED: ACETAMINOPHEN 500 MG TABLET (FP) PO ONE (20:46)
== END 2022-05-01 20:48 | disposition home or self-care (01) ==
LOC: JER 17:40 → JERFT 17:40
DX: S01.81XA Laceration without foreign body of other part of head, initial encounter (principal); Y04.8XXA Assault by other bodily force, initial encounter
CPT/HCPCS: 99283-25